=== PATIENT | female | born 1940 | race Caucasian/White ===

== ENCOUNTER 2017-01-10 07:17 | Emergency (ER) | payer MEDICARE, BC ==
--- NOTE | 2017-01-10 08:26 | ERNOTE ---
Medical Problem HPI - Narrative Date of Service: 01/10/17 - General Chief Complaint: General Assessment Time Seen by Provider: 01/10/17 08:13 Source: patient Exam Limitations: no limitations - Immun/Allergies/Home Medications Immunizations: IMMUNIZATION HX Immunizations Up to Date Yes History of Influenza Vaccine No Hx Pneumococcal Vaccination Yes Allergies/Adverse Reactions: Allergies acetaminophen [From Vicodin] Allergy (Verified 01/10/17 07:34) hydrocodone bitartrate [From Vicodin] Allergy (Verified 01/10/17 07:34) iodine Allergy (Verified 01/10/17 07:34) morphine Allergy (Verified 01/10/17 07:34) oxycodone [Oxycodone] Allergy (Verified 01/10/17 07:34) Home Medications: HOME MEDICATIONS ALPRAZolam [Xanax] 0.25 mg PO TID PRN #90 tab 07/04/15 [Last Taken Unknown] Ascorbic Acid [Vitamin C] 500 mg PO DAILY 12/18/15 [Last Taken Unknown] Multivitamins [Multivitamin Fidel] 1 cap PO DAILY 12/18/15 [Last Taken Unknown] [place]-3 Fatty Acids [Fish Oil] 300 mg PO DAILY 12/18/15 [Last Taken Unknown] metFORMIN HCL [Glucophage] 1,000 mg PO BID 12/18/15 [Last Taken Unknown] Levothyroxine Sodium [Levoxyl] 25 mcg PO DAILY 01/17/16 [Last Taken Unknown] Enalapril Maleate [Vasotec] 20 mg PO DAILY 04/03/16 [Last Taken Unknown] Hydrochlorothiazide 12.5 mg PO DAILY #7 tablet 01/10/17 [Last Taken Unknown] - History of Present History Narrative: Patient presents for high blood pressure. She relates that she had high blood pressure when she woke up this morning. She relates that when she woke up her face felt hot and she took her BP, it was over 200 systolic. SHe took her home enalapril and her anxiety medications. She relates a year or so ago she had this and was given the anxiety medications. She denies VÁZQUEZ, vision changes, N/T/ W, CP, SOB or any symptoms otherwise with this. Her BP is now down since taking the enalapril. Timing: other - better Modifying Factors - (Improves): Present: other - BP meds Modifying Factors - (Worsens): Present: other - nothing Review of Systems - Review of Systems Constitutional: Absent: fever EYE: Absent: vision changes Respiratory: Absent: shortness of breath Cardiology: Absent: chest pain Gastrointestinal/Abdominal: Absent: abdominal pain Genitourinary: Absent: dysuria Skin: Absent: rash Neurological: Absent: weakness - Patient's Past Medical History Patient History - Medical: Arthritis, Hypothyroidism Patient History - Cardiac/Respiratory: No pertinent hx Patient History - Cancer: No Hx of Cancer Patient History - Surgical Procedures: Appendectomy, Cholecystectomy, D & C, Hysterectomy, Other Patient History - Other: None - Family History Mother Family History - Medical: , No pertinent hx Family History - Cardiac/Respiratory: Myocardial Infarction - Social History Living Situations: home Abuse History: No History of abuse Psych History: No pertinent hx Alcohol Use: none Drug Use: none - Immunizations Immunizations Up to Date: Yes Hx Pneumococcal Vaccination: Yes History of Influenza Vaccine: No Physical Exam - Physical Exam General Appearance: Present: alert, no apparent distress Head Exam: Present: normal inspection, no evidence of injury Eye Exam: Normal inspection: bilateral, PERRL: bilateral Ears, Nose, Throat: Present: normal ENT inspection Neck: Present: normal inspection Respiratory: Present: no respiratory distress, normal breath sounds, no accessory muscle use, lungs clear Cardiovascular/Chest: Present: regular rate, rhythm, normal peripheral pulses Gastrointestinal/Abdominal: Present: normal bowel sounds, nontender, nondistended, soft Back Exam: Absent: CVA tenderness (R), CVA tenderness (L) Extremity Exam: Present: normal inspection, non-tender, normal range of motion Neurological Exam: Present: alert, normal mood/affect, no motor/sensory deficits , 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 Absent: motor weakness Skin Exam: Present: normal color, warm/dry ED Progress - Vital Signs Patient's Vital Signs:: I have reviewed the patient's vital signs. Vital Signs: Vital Signs 01/10/17 01/10/17 07:29 07:54 Temperature 36.3 C L Pulse Rate 86 80 Respiratory 12 12 Rate Blood Pressure 180/98 178/98 O2 Sat by Pulse 99 99 Oximetry - EKG EKG: NSR EKG read: Interp. by me EKG Comments: NSR rate 85. Non-specific. No evidence of acute infarct or ischemic pattern. No STEMI - Progress/Reassessment Chief Complaint: General Assessment Progress Note-Subjective: 01/10/17 09:20 I re-checked BP 168/88. She feels like going home. no suggestion of hypertensive urgency or emergency. No secondary complications noted. no stroke or ACS. Will start low dose HCTZ and close f/u. i discussed warning signs and reasons to return as wellas the need for close f/u. Departure - Departure Clinical Impression: High blood pressure Disposition: Home self-care Condition: Stable Instructions: Hypertension, [id number] Additional Instructions: Rest. Take blood pressure 3 times per day and see your doctor thursday with the readings. Continue current BP pill and start new one also. Return for increased blood pressure, chest pain, trouble breathing, numbness, tingling, weakness or if your condition worsens or changes in any way. Referrals: Rodo Harris MD [Primary Care Provider] - Prescriptions: Hydrochlorothiazide 12.5 mg PO DAILY #7 tablet
[2017-01-10 08:35] LABS: Hemoglobin 13.7 gm/dL (12.5-16.0); Mean Cell Volume 88.5 fl (78-100); Mean Corpuscular Hemoglobin 30.3 pg (27-31); Mean Corpuscular Hgb Conc 34.3 g/dl (32-36); Mean Platelet Volume 9.3 fl (6.0-9.5); Neutrophil # 3.4 K/mm3 (1.3-6.0); Neutrophil % 66.8 % (42-75.0); Platelet Count 164 K/mm3 (150-450); Red Blood Count 4.52 M/mm3 (4.2-5.4); Red Cell Distribution Width 12.2 % (11.5-14.0)
[2017-01-10] MEDS ORDERED: HYDROCHLOROTHIAZIDE 25 MG TABLET PO ONE (08:50)
[2017-01-10 08:51] LABS: Anion Gap 11.5 mmol/L (6.8-13.8); Blood Urea Nitrogen 14 mg/dL (3-23); Calcium * 9.1 mg/dL (7.9-10.9); Carbon Dioxide 29.5 mmol/L (24-32.6); Chloride 107 mmol/L (97-106); Estimated Creat Clear 63.4; Glucose * 125 mg/dL (70-110); Sodium 144 mmol/L (132-142); Troponin I Less than 0.017 ng/ml (0.00-0.10)
[2017-01-10] MEDS ORDERED: HYDROCHLOROTHIAZIDE 25 MG TABLET ONE ×2 (08:58→09:01)
[2017-01-10 09:21] VITALS: BP 168/88
== END 2017-01-10 09:26 | disposition home or self-care (01) ==
LOC: ER 07:17
DX: R03.0 Elevated blood-pressure reading, without diagnosis of hypertension (principal); M19.90 Unspecified osteoarthritis, unspecified site